=== PATIENT | female | born 1970 | race Caucasian/White ===

== ENCOUNTER 2016-12-27 13:01 | Emergency (ER) | payer BC ==
[2016-12-27 13:06] VITALS: BP 116/79; PULSE 96; TEMP 97.9; BMI 34.9
--- NOTE | 2016-12-27 14:18 | PDOC ---
History of Present Illness - General Chief Complaint: Pain Stated Complaint: RT SIDE PAIN Time Seen by Provider: 12/27/16 13:55 History Source: Patient Exam Limitations: No Limitations - History of Present Illness Initial Comments: 12/27/16 16:31 CHIEF COMPLAINT: Right lateral torso pain. HISTORY OF PRESENT ILLNESS: Patient is a 46-year-old female, history of laparoscopic cholecystectomy. Patient presents with right lateral rib pain. 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 Concerned she may have broken a rib or muscle. Patient denies any respiratory difficulty, pain is only reproducible with movement. There is no erythema edema or bruising. No lacerations. No pain on inspiration. Denies any fever, no cough or cold-like symptoms. 12/27/16 20:08 Timing/Duration: 24 hours Severity: moderate Past History - Past Medical History Allergies/Adverse Reactions: Allergies Allergy/AdvReac Type Severity Reaction Status Date / Time No Known Allergies Allergy Verified 12/27/16 13:06 Home Medications: Ambulatory Orders No Home Medications 0 dose .ROUTE UTDICT 03/04/12 Cyclobenzaprine HCl [Flexeril 10 mg] 10 mg PO BID PRN #10 tablet MDD 2 12/27/16 Naproxen [Naprosyn -] 500 mg PO BID #14 tablet 12/27/16 COPD: No Other medical history: NONE - Surgical History Cholecystectomy: Yes - Suicide/Smoking/Psychosocial Hx Smoking Status: No Smoking History: Never smoked Number of Cigarettes Smoked Daily: 0 Hx Alcohol Use: No Drug/Substance Use Hx: No Review of Systems - Review of Systems Constitutional: No: Symptoms Reported HEENTM: No: Symptoms Reported Respiratory: No: Symptoms reported Cardiac (ROS): Yes: Other (pain to her right lateral ribs). No: Chest Pain ABD/GI: No: Symptoms Reported, Nausea, Vomiting : No: Symptoms Reported Musculoskeletal: Yes: Muscle Pain. No: Back Pain, Joint Pain, Joint Swelling, Muscle Weakness, Joint Stiffness Integumentary: No: Symptoms Reported, Bruising, Erythema Neurological: No: Symptoms reported, Paresthesia, Tingling, Tremors Hematologic/Lymphatic: No: Symptoms Reported All Other Systems: Reviewed and Negative *Physical Exam - Vital Signs Last Vital Signs Temp Pulse Resp BP Pulse Ox 97.9 F 96 H 20 116/79 99 12/27/16 13:03 12/27/16 13:03 12/27/16 13:03 12/27/16 13:03 12/27/16 13:03 - Physical Exam General Appearance: Yes: Appropriately Dressed. No: Apparent Distress HEENT: positive: STEVE, Normal ENT Inspection, Normal Voice, Symmetrical, TMs Normal, Pharynx Normal Neck: positive: Trachea midline. negative: Tender, Tender lateral, Tender midline Respiratory/Chest: positive: Lungs Clear, Normal Breath Sounds. negative: Respiratory Distress, Accessory Muscle Use Cardiovascular: positive: Regular Rhythm, Regular Rate Gastrointestinal/Abdominal: positive: Normal Bowel Sounds, Soft. negative: Tender Lymphatic: negative: Adenopathy Musculoskeletal: positive: Normal Inspection, Other (pains right lateral ribs with Dr. Lu with movement). negative: Decreased Range of Motion, Muscle Spasm, Vertebral Tenderness Extremity: positive: Normal Capillary Refill, Normal Inspection, Normal Range of Motion, Pelvis Stable. negative: Tender Integumentary: positive: Normal Color, Dry. negative: Erythema, Swelling, Ecchymosis, Bruising Neurologic: positive: Alert, Normal Mood/Affect ED Treatment Course - RADIOLOGY Radiology Studies Ordered: Category Date Time Status CHEST PA & LAT [RAD] Stat Radiology 12/27/16 14:14 Ordered RIBS RIGHT SIDE [RAD] Stat Radiology 12/27/16 14:14 Ordered Medical Decision Making - Medical Decision Making 12/27/16 20:10 A/P: Patient here for evaluation of right lateral rib pain, musculoskeletal pain. Patient sent x-ray, negative for acute fracture of ribs, chest x-ray is negative for acute pathology. Given with good result will DC patient home on Motrin. Follow-up with PMD if pain persists. If any chest pain shortness of breath difficulty. He went into concerns return to ER *DC/Admit/Observation/Transfer Diagnosis at time of Disposition: Musculoskeletal pain, Rib pain on right side - Discharge Dispostion Disposition: HOME Condition at time of disposition: Good Admit: No - Prescriptions Prescriptions: Cyclobenzaprine HCl [Flexeril 10 mg] 10 mg PO BID PRN #10 tablet MDD 2 PRN Reason: Pain Level 1-5 Naproxen [Naprosyn -] 500 mg PO BID #14 tablet - Referrals Referrals: Marc Mims MD [Primary Care Provider] - - Patient Instructions Additional Instructions: 1. Please return to the emergency department with any numbness, tingling, weakness, numbness or tingling to groin or legs, or loss of bowel or bladder function. 2. Use pain medication as ordered. 3. Please is to followup in the office of Dr. Mims for evaluation within a week if no improvement. 4. Ice or heat 5. Refrain from lifting anything above 10 pounds, until pain resolved. - Post Discharge Activity Forms/Work/School Notes: Back to Work
[2016-12-27] MEDS ORDERED: KETOROLAC TROMETHAMINE 60 MG/2 ML VIAL IM ONE (15:37)
[2016-12-27] MEDS ORDERED: KETOROLAC TROMETHAMINE 60 MG/2 ML VIAL ONE (15:39)
== END 2016-12-27 16:37 | disposition home or self-care (01) ==
LOC: JERFT 13:01
PROC: 3E0233Z Introduction of Anti-inflammatory into Muscle, Percutaneous Approach (ICD-10-PCS; principal; 2016-12-27)
DX: R07.81 Pleurodynia (principal); M79.1 Myalgia
CPT/HCPCS: 71020-TC; 71101-TC-RT; 84703; 99281-25

== ENCOUNTER 2017-01-16 07:44 | Observation (INO) | payer SELFPAY ==
--- NOTE | 2017-01-16 08:14 | PDOC ---
Attending Attestation - HPI HPI: 01/16/17 08:39 The patient is a 46 year old female, with no significant past medical history, who presents to the emergency department with intermittent right lower quadrant pain for 3 days. She reports the pain increased since last night prompting her ED visit today. She denies taking OTC pain medications today. She reports the pain is sharp, 6/10, and localized to her right lower quadrant. She states she is sexually active without history of STDs. She denies chest pain, shortness of breath, headache and dizziness. She denies fever, chills, nausea, vomit, diarrhea and constipation. She denies dysuria, frequency, urgency and hematuria. Allergies: NKDA Past surgical history: cholecystectomy, tubal ligation, cesareanx2 Social history: Pt denies tobacco use PCP - Dr. Marc Mims - Physicial Exam PE: 01/16/17 08:40 Vitals: Triage vital signs reviewed General Appearance: No acute distress, well nourished, well developed Head: Atraumatic Neck: Supple; No nuchal rigidity Chest Wall: Nontender Cardiac: Regular rate and rhythm, no murmurs, no rubs, no gallops Lungs: Clear to auscultation bilateral, good air movement bilaterally Abdomen: (+) mild RLQ tenderness to palpation without rebound or guarding, Soft , nondistended, normal bowel sounds, Genitourinary: Rectal: Exam deferred Extremities: Full range of motion to all extremities, no cyanosis, clubbing, or edema Skin: Warm and dry, no rashes or lesions, no rash, no petechiae Neuro: AOX3; Cranial Nerves 2-12 grossly intact, Strength intact to all extremities, Sensation intact to all extremities, gait normal Psych: Normal mood, normal affect <Dianne Jonas - Last Filed: 01/16/17 08:39> - Resident Resident Name: Mariel Hernandez - ED Attending Attestation I have performed the following: I have examined & evaluated the patient, The case was reviewed & discussed with the resident, I agree w/resident's findings & plan, Exceptions are as noted - Medical Decision Making 01/16/17 10:441 day history of right-sided abdominal discomfort, status post cholecystectomy, normal pelvic exam We'll check CT labs and reassesspatient Reevaluation: No fever no white count T evidence of acute appendicitis Lactic very slightly elevated at 2.6 I suspect this is secondary to patient being volume down We'll hydrate perform serial abdominal examinations and reassess 01/16/17 14:48 Reevaluation 2 PM patient still with persistent right-sided abdominal pain. We will observe in the hospital. If pain persists she will require surgical consultation <Junior Tony - Last Filed: 01/16/17 14:48>
--- NOTE | 2017-01-16 08:25 | PDOC ---
History of Present Illness - General Chief Complaint: Pain Stated Complaint: RLQ PAIN Time Seen by Provider: 01/16/17 08:00 - History of Present Illness Initial Comments: 01/16/17 08:05 Patient is a 46 y.o. female with no reported PMH who presents with a 2 day h/o R sided abdominal pain that started periumbically and progressively started to radiate to her entire right quadrant. Patient is unable to identify any triggering or relieving factors and denies any vomiting, constipation, diarrhea , fevers or chills however endorses some nausea. Patient has been tolerating PO intake, however notes decreased appetite. Patient is delfina menopausal with LMP in September 2016. NKDA Surgical: C/S x2, Cholecystectomy, Tubal Ligation PMD: Dr. Marc Mims Social: denies cigarettes, denies alcohol, denies recreational drugs Past History - Past Medical History Allergies/Adverse Reactions: Allergies Allergy/AdvReac Type Severity Reaction Status Date / Time No Known Allergies Allergy Verified 01/16/17 07:48 Home Medications: Ambulatory Orders NK [No Known Home Medication] 01/16/17 COPD: No Kidney Stones: Yes - Surgical History Cholecystectomy: Yes - Suicide/Smoking/Psychosocial Hx Smoking Status: No Smoking History: Never smoked Have you smoked in the past 12 months: No Number of Cigarettes Smoked Daily: 0 Information on smoking cessation initiated: No Hx Alcohol Use: No Drug/Substance Use Hx: No Substance Use Type: None Review of Systems - Review of Systems Constitutional: No: Chills, Fever *Physical Exam - Vital Signs Last Vital Signs Temp Pulse Resp BP Pulse Ox 98.1 F 88 18 149/89 100 01/16/17 07:48 01/16/17 07:48 01/16/17 07:48 01/16/17 07:48 01/16/17 07:48 ED Treatment Course - LABORATORY CBC & Chemistry Diagram: 01/16/17 08:36 01/16/17 08:36 Medical Decision Making - Medical Decision Making 01/16/17 08:50 Patient is a 46 y.o. female who presents with a 2 day h/o of R sided abdominal pain that acute onset progressively increasing in severity and radiation from delfina-umbilical to RLQ. Given progressive severity and radiation, high clinical suspicion for appendicitis vs. ovarian pathology including torsion. PLAN: 1. CBC, CMP, IV NS 2. UA, Urine 3. CT Abdomen 01/16/17 09:02 Pelvic exam shows closed cervical os, no appreciable blood or discharge in vaginal vault, no increased pain during exam, suggesting abdominal > ovarian pathology 01/16/17 09:15 Lactic Acid 2.6 --> patient recieving 1 L IV NS will repeat @ 1200; patient @ CT 01/16/17 10:01 Appendix not visualized on CT Scan; Hepatic Steatosis noted, patient reasessed , pain well controlled, c/o nausea. Serial belly exams while await repeat lactate; 01/16/17 12:27 Repeat Lactic Acid 0.7. Patient continues to c/o of belly pain. Given concern for possible development into acute abdomen, patient to be admitted for observation and further evaluation. 01/16/17 14:[address] Beckford (Hospitalist) covering for Dr. Garcia covering for Dr. Mims (patient's PMD). Will continue to monitor while in ED. *DC/Admit/Observation/Transfer Diagnosis at time of Disposition: Abdominal pain - Discharge Dispostion Condition at time of disposition: Fair Admit: Yes - Referrals Referrals: Marc Mims MD [Primary Care Provider] - - Patient Instructions - Post Discharge Activity
[2017-01-16] MEDS ORDERED: SODIUM CHLORIDE 0.9% 1000 ML INFUS.BAG IV ONE ×2 (08:37→09:52)
[2017-01-16] MEDS ORDERED: ACETAMINOPHEN 1000 MG/100 ML VIAL (NON FORMULARY) IVPB ONE (08:37)
[2017-01-16] MEDS ORDERED: morphine CARPU-JECT 2 MG/1 ML DISP.SYRIN IVPUSH ONE (08:39)
[2017-01-16 08:40] LABS: BASOPHIL 0.7 % (0-2.0); EOSINOPHIL 4.3 % (0-4.5); MCH 29.1 pg (25.7-33.7); MCHC 33.9 g/dl (32.0-36.0); MEAN CELL VOLUME 85.8 fl (80-96); MEAN PLT VOLUME 8.1 fl (7.5-11.1); NEUTROPHILS 67.6 % (42.8-82.8); PLATELET COUNT 255 K/MM3 (134-434); RDW 12.8 % (11.6-15.6); WHITE BLOOD COUNT 9.7 K/mm3 (4.0-10.0)
[2017-01-16] MEDS ORDERED: morphine SULFATE 4 MG/ML VIAL ONE (08:43)
[2017-01-16 08:46] LABS: URINE APPEARANCE CLEAR; URINE BILIRUBIN NEGATIVE (NEGATIVE); URINE BLOOD NEGATIVE (NEGATIVE); URINE COLOR LTYELLOW; URINE GLUCOSE (UA) NEGATIVE (NEGATIVE); URINE KETONE NEGATIVE (NEGATIVE); URINE NITRITE NEGATIVE (NEGATIVE); URINE PROTEIN NEGATIVE (NEGATIVE); URINE UROBILINOGEN NEGATIVE mg/dL (0.2-1.0)
[2017-01-16 09:14] LABS: ANION GAP 6 (8-16); BILIRUBIN,TOTAL 0.4 mg/dL (0.2-1.0); CALCIUM 8.6 mg/dL (8.5-10.1); CO2 30 mmol/L (21-32); CREATININE 0.8 mg/dL (0.55-1.02); GLUCOSE,RANDOM 96 mg/dL (74-106); SGOT/AST 19 U/L (15-37); SGPT/ALT 33 U/L (12-78); TOT PROT 7.6 g/dl (6.4-8.2)
[2017-01-16 09:15] LABS: ALK PHOS 87 U/L (45-117)
[2017-01-16] MEDS ORDERED: ONDANSETRON 4 MG/2 ML VIAL IVPUSH ONE (11:01)
[2017-01-16] MEDS ORDERED: ONDANSETRON 4 MG/2 ML VIAL ONE (11:24)
[2017-01-16] MEDS ORDERED: PANTOPRAZOLE SODIUM 40 MG VIAL IVPUSH ONE (14:48)
--- NOTE | 2017-01-16 15:49 | HP ---
CHIEF COMPLAINT: abdominal pain, tenderness x 3 days, intermittent nausea PCP: Dr. Marc Mims HISTORY OF PRESENT ILLNESS: Patient is a 46 year old female with a past medical history of cholecystectomy, tubal ligation and kidney stones 25 yrs ago. She presents to the ED today with RUQ abdominal pain and tenderness that is reproducible on light palpation of right upper quadrant. She states the RUQ pain began on Sunday and began as a dull ache and became more intense and now she describes the pain as a "throbbing , stabbing" pain and rates her pain 6/10. Her las BM was this morning and she reports it as normal. Patient is unable to identify any triggering or relieving factors and denies any vomiting, constipation, diarrhea, fevers or chills however endorses some nausea. Patient has been tolerating PO, however notes decreased appetite since Sunday. Patient is delfina menopausal with LMP in September 2016. ER course was notable for: (1) Lipase 147 (2) Lactic acid 2.6<0.7 (3) Trop 0.02 Recent Travel: none PAST MEDICAL HISTORY: PAST SURGICAL HISTORY: C/S x2, Cholecystectomy, Tubal Ligation Social History: Smoking: denies Alcohol:denies Drugs: denies Family History: Allergies No Known Allergies Allergy (Verified 01/16/17 07:48) HOME MEDICATIONS: Home Medications Medication Instructions Recorded NK [No Known Home Medication] 01/16/17 REVIEW OF SYSTEMS CONSTITUTIONAL: Absent: fever, chills, diaphoresis, generalized weakness, malaise, weight change HEENT: Absent: rhinorrhea, nasal congestion, throat pain, throat swelling, difficulty swallowing, mouth swelling, ear pain, eye pain, visual changes CARDIOVASCULAR: Absent: chest pain, syncope, palpitations, irregular heart rate, lightheadedness , peripheral edema RESPIRATORY: Absent: cough, shortness of breath, dyspnea with exertion, orthopnea, wheezing, stridor, hemoptysis GASTROINTESTINAL: Absent: abdominal distension, vomiting, diarrhea, constipation, melena, hematochezia GENITOURINARY: Absent: dysuria, frequency, urgency, hesitancy, hematuria, flank pain, genital pain MUSCULOSKELETAL: Absent: myalgia, arthralgia, joint swelling, back pain, neck pain SKIN: Absent: rash, itching, pallor HEMATOLOGIC/IMMUNOLOGIC: Absent: easy bleeding, easy bruising, lymphadenopathy, frequent infections ENDOCRINE: Absent: unexplained weight gain, unexplained weight loss, heat intolerance, cold intolerance NEUROLOGIC: Absent: headache, focal weakness or paresthesias, dizziness, unsteady gait, seizure, mental status changes, bladder or bowel incontinence PSYCHIATRIC: Absent: anxiety, depression, suicidal or homicidal ideation, hallucinations. PHYSICAL EXAMINATION Vital Signs - 24 hr 01/16/17 01/16/17 01/16/17 07:48 12:16 14:15 Temperature 98.1 F 98.3 F Pulse Rate 88 Pulse Rate [ 93 H 95 H Right Radial] Respiratory 18 16 16 Rate Blood Pressure 149/89 Blood Pressure 133/68 130/66 [Left Arm] O2 Sat by Pulse 100 100 100 Oximetry (%) GENERAL: Awake, alert, and fully oriented, in no acute distress. HEAD: Normal with no signs of trauma. EYES: Pupils equal, round and reactive to light, extraocular movements intact, sclera anicteric, conjunctiva clear. No lid lag. EARS, NOSE, THROAT: Ears normal, nares patent, oropharynx clear without exudates. Moist mucous membranes. NECK: Normal range of motion, supple without lymphadenopathy, JVD, or masses. LUNGS: Breath sounds equal, clear to auscultation bilaterally. No wheezes, and no crackles. No accessory muscle use. HEART: Regular rate and rhythm, normal S1 and S2 without murmur, rub or gallop. ABDOMEN: Soft, non distended abdomen, + bowel sounds, RUQ pain on light palpation, +flatus MUSCULOSKELETAL: Normal range of motion at all joints. No bony deformities or tenderness. No CVA tenderness. UPPER EXTREMITIES: 2+ pulses, warm, well-perfused. No cyanosis. No clubbing. No peripheral edema. LOWER EXTREMITIES: eczema on bilateral anterior shins NEUROLOGICAL: Normal speech. Normal gait. PSYCHIATRIC: Cooperative. Good eye contact. Appropriate mood and affect. SKIN: Warm, dry, normal turgor, no rashes or lesions noted, normal capillary refill. Laboratory Results - last 24 hr 01/16/17 01/16/17 01/16/17 08:36 08:36 08:36 WBC 9.7 RBC 5.07 Hgb 14.7 Hct 43.5 MCV 85.8 MCH 29.1 MCHC 33.9 RDW 12.8 Plt Count 255 MPV 8.1 Neutrophils % 67.6 Lymphocytes % 19.8 Monocytes % 7.6 Eosinophils % 4.3 Basophils % 0.7 Sodium 139 Potassium 3.9 Chloride 103 Carbon Dioxide 30 Anion Gap 6 L BUN 12 Creatinine 0.8 Creat Clearance w eGFR > 60 Random Glucose 96 Lactic Acid Calcium 8.6 Total Bilirubin 0.4 AST 19 ALT 33 Alkaline Phosphatase 87 Total Protein 7.6 Albumin 4.0 Lipase 147 Urine Color Ltyellow Urine Appearance Clear Urine pH 5.0 Ur Specific [place] 1.017 Urine Protein Negative Urine Glucose (UA) Negative Urine Ketones Negative Urine Blood Negative Urine Nitrite Negative Urine Bilirubin Negative Urine Urobilinogen Negative Urine HCG, Qual Negative 01/16/17 01/16/17 08:36 13:00 WBC RBC Hgb Hct MCV MCH MCHC RDW Plt Count MPV Neutrophils % Lymphocytes % Monocytes % Eosinophils % Basophils % Sodium Potassium Chloride Carbon Dioxide Anion Gap BUN Creatinine Creat Clearance w eGFR Random Glucose Lactic Acid 2.6 H* 0.7 Calcium Total Bilirubin AST ALT Alkaline Phosphatase Total Protein Albumin Lipase Urine Color Urine Appearance Urine pH Ur Specific [place] Urine Protein Urine Glucose (UA) Urine Ketones Urine Blood Urine Nitrite Urine Bilirubin Urine Urobilinogen Urine HCG, Qual ASSESSMENT/PLAN: Patient is a 46 year old female with a past medical history of cholecystectomy, tubal ligation and kidney stones 25 yrs ago. She presents to the ED today with RUQ abdominal pain and tenderness that is reproducible on light palpation of right upper quadrant. She states the RUQ pain began on Sunday and began as a dull ache and became more intense and now she describes the pain as a "throbbing , stabbing" pain and rates her pain 6/10, the pain does not radiate to her back or anywhere else. Her las BM was this morning and she reports it as normal. Patient is unable to identify any triggering or relieving factors and denies any vomiting, constipation, diarrhea, fevers or chills however endorses some nausea. Patient has been tolerating PO, however notes decreased appetite since Sunday. Patient is delfina menopausal with LMP in September 2016. In ED lactic acidosis resolved with hydration, no signs of infection. Imaging: CT abdomen and pelvis with IV contrast: appendix not visualized, however no secondary sings of acute appendicitis in the RLQ. No intestinal obstruction and no bowel wall thickening, hepatic statosis, status post cholecystectom. The uterus and urinary bladder are unremarkable. GI: Abdominal pain, acute CT abdomen as above WBC within normal limtis, afebrile, vitals stable Monitor for now in OBS Clear liquid diet Low dose morphine 0.5mg for pain control Zofran for nausea Protonix 40mg daily GI consult and pt to follow as an outpatient Trop negative F.E.N. Fluids: PO Electrolytes: monitor Nutrition: clears Prophylaxis: DVT: ambulatory, LOS <48 hours, deferred a/c GI: protonix 40mg daily, consider Protonix 40mg PO daily on discharge Disposition. observation, d/c tomorrow likely. full code. Visit type - Emergency Visit Emergency Visit: Yes ED Registration Date: 01/16/17 Care time: The patient presented to the Emergency Department on the above date and was hospitalized for further evaluation of their emergent condition. - New Patient This patient is new to me today: Yes Date on this admission: 01/16/17 - Critical Care Critical Care patient: No
[2017-01-16] MEDS ORDERED: PANTOPRAZOLE SODIUM 40 MG/100 ML BAG IVPB ONE (16:01)
--- NOTE | 2017-01-16 16:39 | CON.GI ---
Consult Consult Specialty:: GI Reason for Consultation:: abd. pain - History of Present Illness History of Present Illness: A 46 yof history of 12 y ago, tubal ligation, presents with acute onset, 3 days ago, RLQ pain, deep, non-radiating, w/o nausea, vomiting, changes in bowels, fever, chills, jaundice. The pain is unrelated to food, fasting, stress. No ill contacts, eating, out, changes in diet. No dysphagia, odynophagia , GERD. No dysurea, hematurea. Was involved in heavy physical activity on Sunday (lifting a Prepmatic tree by herself), reports no injures. - History Source History Provided By: Patient, Family Member, Medical Record - Alcohol/Substance Use Hx Alcohol Use: No - Smoking History Smoking history: Never smoked Have you smoked in the past 12 months: No Aproximately how many cigarettes per day: 0 Home Medications - Allergies Allergies/Adverse Reactions: Allergies Allergy/AdvReac Type Severity Reaction Status Date / Time No Known Allergies Allergy Verified 01/16/17 07:48 - Home Medications Home Medications: Ambulatory Orders NK [No Known Home Medication] 01/16/17 Family Disease History - Family Disease History Family History: Unremarkable Review of Systems Findings/Remarks: as per H&P, HPI Physical Exam-GI Vital Signs: Vital Signs Temperature 98.1 F 01/16/17 16:35 Pulse Rate 89 01/16/17 16:35 Respiratory Rate 16 01/16/17 16:35 Blood Pressure 128/56 01/16/17 16:35 O2 Sat by Pulse Oximetry (%) 100 01/16/17 16:35 Constitutional: Yes: Well Nourished, No Distress, Calm Eyes: Yes: Conjunctiva Clear HENT: Yes: Atraumatic Neck: Yes: Supple Cardiovascular: Yes: Regular Rate and Rhythm Respiratory: Yes: Regular, CTA Bilaterally ...Auscultate: Yes: Normoactive Bowel Sounds Musculoskeletal: Yes: Muscle Pain (RLQ abdominal wall tenderness on palpation elicited while supine with both legs raised up. no obvius abdominal wall defects) Extremities: Yes: WNL Edema: No Neurological: Yes: Alert, Oriented Labs: CBC, BMP 01/16/17 08:36 01/16/17 08:36 Abnormal Lab Results 01/16/17 01/16/17 08:36 08:36 Anion Gap 6 L Lactic Acid 2.6 H* Laboratory Results - last 24 hr 01/16/17 01/16/17 01/16/17 08:36 08:36 08:36 WBC 9.7 RBC 5.07 Hgb 14.7 Hct 43.5 MCV 85.8 MCH 29.1 MCHC 33.9 RDW 12.8 Plt Count 255 MPV 8.1 Neutrophils % 67.6 Lymphocytes % 19.8 Monocytes % 7.6 Eosinophils % 4.3 Basophils % 0.7 Sodium 139 Potassium 3.9 Chloride 103 Carbon Dioxide 30 Anion Gap 6 L BUN 12 Creatinine 0.8 Creat Clearance w eGFR > 60 Random Glucose 96 Lactic Acid Calcium 8.6 Total Bilirubin 0.4 AST 19 ALT 33 Alkaline Phosphatase 87 Troponin I Total Protein 7.6 Albumin 4.0 Lipase 147 Urine Color Ltyellow Urine Appearance Clear Urine pH 5.0 Ur Specific [place] 1.017 Urine Protein Negative Urine Glucose (UA) Negative Urine Ketones Negative Urine Blood Negative Urine Nitrite Negative Urine Bilirubin Negative Urine Urobilinogen Negative Ur Leukocyte Esterase Negative Urine HCG, Qual Negative 01/16/17 01/16/17 01/16/17 08:36 13:00 16:15 WBC RBC Hgb Hct MCV MCH MCHC RDW Plt Count MPV Neutrophils % Lymphocytes % Monocytes % Eosinophils % Basophils % Sodium Potassium Chloride Carbon Dioxide Anion Gap BUN Creatinine Creat Clearance w eGFR Random Glucose Lactic Acid 2.6 H* 0.7 Calcium Total Bilirubin AST ALT Alkaline Phosphatase Troponin I < 0.02 Total Protein Albumin Lipase Urine Color Urine Appearance Urine pH Ur Specific [place] Urine Protein Urine Glucose (UA) Urine Ketones Urine Blood Urine Nitrite Urine Bilirubin Urine Urobilinogen Ur Leukocyte Esterase Urine HCG, Qual Imaging - Results Cat Scan: Report Reviewed (no acute pathology) Problem List - Problems (1) Musculoskeletal pain Code(s): M79.1 - MYALGIA (2) Abdominal pain Code(s): R10.9 - UNSPECIFIED ABDOMINAL PAIN Assessment/Plan Boubt acute GI pathology. Suspect abdominal wall muscular pain caused by heavy lifting. No obvious hernia-related findings. Normal CT/Labs including UA, negative HGC Motrin PRN Avoid strenuous activities for 1-2 weeks OK to D/C from GI perspective Follow up with PCP in few days for reassessment Discussed with the patient and her
[2017-01-16 17:10] LABS: URINE LEUK ESTERASE Negative (NEGATIVE)
[2017-01-16] MEDS ORDERED: morphine SULFATE 4 MG/ML VIAL IVPB PRN (18:10)
[2017-01-16] MEDS ORDERED: ONDANSETRON 4 MG/2 ML VIAL IVPUSH PRN (18:11)
[2017-01-16 18:59] VITALS: BMI 36.3
[2017-01-16] MEDS: ACETAMINOPHEN 325 MG TABLET (FP) PO PRN (19:59)
[2017-01-17 07:49] LABS: BASOPHIL 0.5 % (0-2.0); EOSINOPHIL 5.5 % (0-4.5); MCH 28.9 pg (25.7-33.7); MCHC 33.8 g/dl (32.0-36.0); MEAN CELL VOLUME 85.6 fl (80-96); MEAN PLT VOLUME 8.3 fl (7.5-11.1); NEUTROPHILS 60.3 % (42.8-82.8); PLATELET COUNT 205 K/MM3 (134-434); WHITE BLOOD COUNT 7.1 K/mm3 (4.0-10.0)
[2017-01-17 08:11] LABS: ALBUMIN 3.4 g/dl (3.4-5.0); ANION GAP 9 (8-16); CO2 29 mmol/L (21-32); GLUCOSE,RANDOM 75 mg/dL (74-106)
[2017-01-17 08:14] LABS: ALK PHOS 67 U/L (45-117); BILIRUBIN,TOTAL 0.4 mg/dL (0.2-1.0); CREATININE 0.7 mg/dL (0.55-1.02); SGOT/AST 19 U/L (15-37); SGPT/ALT 31 U/L (12-78); TOT PROT 6.5 g/dl (6.4-8.2)
--- NOTE | 2017-01-17 08:48 | PN ---
Progress Note, Physician History of Present Illness: The pain is unchanged. No events. - Current Medication List Current Medications: Active Medications Acetaminophen (Tylenol -) 650 mg PO Q6H PRN PRN Reason: FEVER OR PAIN Last Admin: 01/16/17 19:59 Dose: 650 mg Morphine Sulfate (Morphine Sulfate) 0.5 mg IVPB Q6H PRN PRN Reason: PAIN Ondansetron HCl (Zofran Injection) 4 mg IVPUSH Q6H PRN PRN Reason: NAUSEA AND/OR VOMITING Pantoprazole Sodium (Protonix Iv) 40 mg IVPUSH DAILY ANTOINETTE - Objective Vital Signs: Vital Signs Temperature 97.9 F 01/17/17 05:58 Pulse Rate 90 01/17/17 05:58 Respiratory Rate 20 01/17/17 05:58 Blood Pressure 135/69 01/17/17 05:58 O2 Sat by Pulse Oximetry (%) 96 01/16/17 21:00 Constitutional: Yes: No Distress, Calm Eyes: Yes: Conjunctiva Clear HENT: Yes: Atraumatic Neck: Yes: Supple Cardiovascular: Yes: Regular Rate and Rhythm Respiratory: Yes: Regular Gastrointestinal: Yes: Normal Bowel Sounds, Soft. No: Melena, Rectal Bleeding, Tenderness Neurological: Yes: Alert, Oriented Labs: CBC, BMP 01/17/17 05:35 01/17/17 05:35 Laboratory Results - last 24 hr 01/16/17 01/16/17 01/16/17 08:36 08:36 08:36 WBC RBC Hgb Hct MCV MCH MCHC RDW Plt Count MPV Neutrophils % Lymphocytes % Monocytes % Eosinophils % Basophils % Sodium 139 Potassium 3.9 Chloride 103 Carbon Dioxide 30 Anion Gap 6 L BUN 12 Creatinine 0.8 Creat Clearance w eGFR > 60 Random Glucose 96 Lactic Acid 2.6 H* Calcium 8.6 Total Bilirubin 0.4 AST 19 ALT 33 Alkaline Phosphatase 87 Troponin I Total Protein 7.6 Albumin 4.0 Lipase 147 Urine Color Ltyellow Urine Appearance Clear Urine pH 5.0 Ur Specific Dillard 1.017 Urine Protein Negative Urine Glucose (UA) Negative Urine Ketones Negative Urine Blood Negative Urine Nitrite Negative Urine Bilirubin Negative Urine Urobilinogen Negative Ur Leukocyte Esterase Negative Urine HCG, Qual Negative 01/16/17 01/16/17 01/17/17 13:00 16:15 05:35 WBC 7.1 RBC 4.75 Hgb 13.7 Hct 40.7 MCV 85.6 MCH 28.9 MCHC 33.8 RDW 13.0 Plt Count 205 MPV 8.3 Neutrophils % 60.3 Lymphocytes % 24.9 D Monocytes % 8.8 Eosinophils % 5.5 H Basophils % 0.5 Sodium Potassium Chloride Carbon Dioxide Anion Gap BUN Creatinine Creat Clearance w eGFR Random Glucose Lactic Acid 0.7 Calcium Total Bilirubin AST ALT Alkaline Phosphatase Troponin I < 0.02 Total Protein Albumin Lipase Urine Color Urine Appearance Urine pH Ur Specific Dillard Urine Protein Urine Glucose (UA) Urine Ketones Urine Blood Urine Nitrite Urine Bilirubin Urine Urobilinogen Ur Leukocyte Esterase Urine HCG, Qual 01/17/17 05:35 WBC RBC Hgb Hct MCV MCH MCHC RDW Plt Count MPV Neutrophils % Lymphocytes % Monocytes % Eosinophils % Basophils % Sodium 143 Potassium 4.1 Chloride 105 Carbon Dioxide 29 Anion Gap 9 BUN 7 D Creatinine 0.7 Creat Clearance w eGFR > 60 Random Glucose 75 D Lactic Acid Calcium 9.0 Total Bilirubin 0.4 AST 19 ALT 31 Alkaline Phosphatase 67 D Troponin I Total Protein 6.5 Albumin 3.4 Lipase Urine Color Urine Appearance Urine pH Ur Specific Dillard Urine Protein Urine Glucose (UA) Urine Ketones Urine Blood Urine Nitrite Urine Bilirubin Urine Urobilinogen Ur Leukocyte Esterase Urine HCG, Qual Problem List - Problems (1) Musculoskeletal pain Code(s): M79.1 - MYALGIA (2) Abdominal pain Code(s): R10.9 - UNSPECIFIED ABDOMINAL PAIN Assessment/Plan Doubt acute GI pathology. Suspect abdominal wall muscular pain caused by heavy lifting. No obvious hernia-related findings. Normal CT/Labs including UA, negative HGC Motrin PRN Avoid strenuous activities for 1-2 weeks OK to D/C from GI perspective Follow up with PCP in few days for reassessment
[2017-01-17] MEDS: ACETAMINOPHEN 325 MG TABLET (FP) PO PRN (09:54)
[2017-01-17] MEDS ORDERED: PANTOPRAZOLE SODIUM 40 MG VIAL IVPUSH SCH (10:00)
[2017-01-17 11:21] VITALS: BP 129/75; PULSE 86; TEMP 98
--- NOTE | 2017-01-17 12:37 | DS ---
Physical Examination Vital Signs: Vital Signs Temperature 98.0 F 01/17/17 09:00 Pulse Rate 86 01/17/17 09:00 Respiratory Rate 18 01/17/17 09:00 Blood Pressure 129/75 01/17/17 09:00 O2 Sat by Pulse Oximetry (%) 96 01/17/17 09:00 Labs: CBC, BMP 01/17/17 05:35 01/17/17 05:35 Discharge Summary Reason For Visit: ACUTE ABDOMINAL PAIN IN RIGHT LOWER QUADRANT Current Active Problems Abdominal pain (Acute) Condition: Improved - Instructions Diet, Activity, Other Instructions: Please return to the ED with new, persistent, or worsening symptoms. Please follow-up with providers as indicated. Referrals: Marc Mims MD [Primary Care Provider] - (Please follow-up with your primary care provider within 2-3 days for further evaluation and reassessment) Dhiraj Mcallister MD [Staff Physician] - 1 Week Disposition: HOME - Home Medications Comprehensive Discharge Medication List: Ambulatory Orders Ibuprofen [Motrin -] 400 mg PO TID PRN #21 tablet 01/17/17
== END 2017-01-17 14:31 | disposition home or self-care (01) ==
LOC: JER 07:44 → JERBED 14:16 → J8W 17:03
PROVIDERS: ADMIT Hospitalist; ATTEND Registered Nurse
PROC: 3E033GC Introduction of Other Therapeutic Substance into Peripheral Vein, Percutaneous Approach (ICD-10-PCS; principal; 2017-01-16)
DX: R10.31 Right lower quadrant pain (principal); M79.1 Myalgia
CPT/HCPCS: 36415; 74177-TC; 80053; 81003; 83605; 83690; 84484; 84703; 85025; 87086; 96374; 99285-25; G0378

== ENCOUNTER 2021-01-10 00:22 | Emergency (ER) | payer OTHER ==
[2021-01-10] MEDS ORDERED: FAMOTIDINE 20 MG/50 ML IVPB 20 MG/50 ML MG IVPB ONE ×2 (02:20→02:23)
[2021-01-10] MEDS ORDERED: ONDANSETRON 4 MG/2 ML VIAL IVPUSH ONE (02:20)
[2021-01-10] MEDS ORDERED: SODIUM CHLORIDE 0.9% 1000 ML INFUS.BAG IV ONE (02:20)
[2021-01-10] MEDS ORDERED: MAG HYDROX/AL HYDROX/SIMETH -MYLANTA- ORAL SUSPENSION PO ONE (02:20)
[2021-01-10] MEDS ORDERED: ONDANSETRON 4 MG/2 ML VIAL ONE (02:23)
[2021-01-10] MEDS ORDERED: MAG HYDROX/AL HYDROX/SIMETH 30 ML UNIT-DOSE CUP ONE (02:23)
[2021-01-10 02:34] LABS: BASO % 0.8 % (0-2.0); EOS % 7.9 % (0-4.5); HEMATOCRIT 46.5 % (32.4-45.2); LYMPH % 12.4 % (8-40); MCH 28.9 pg (25.7-33.7); MCHC 34.4 g/dl (32.0-36.0); MEAN PLT VOLUME 8.1 fl (7.5-11.1); MONO % 6.7 % (3.8-10.2); NEUT % 72.2 % (42.8-82.8); PLATELET COUNT 253 10^3/uL (134-434); RBC 5.53 M/mm3 (3.60-5.2); WHITE BLOOD COUNT 14.4 K/mm3 (4.0-10.0)
[2021-01-10 02:56] LABS: INR 1.14 (0.83-1.09); PROTHROMBIN TIME (PATIENT) 13.3 SEC (9.7-13.0)
[2021-01-10 02:59] LABS: ACTIVATED PTT 37.5 SECONDS (25.2-36.5); CHLORIDE 101 mmol/L (98-107); SODIUM 138 mmol/L (136-145)
[2021-01-10 03:01] LABS: CALCIUM 9.2 mg/dL (8.5-10.1)
[2021-01-10 03:02] LABS: ALBUMIN 3.8 g/dl (3.4-5.0); ANION GAP 7 MMOL/L (8-16); BLOOD UREA NITROGEN 15.3 mg/dL (7-18); CO2 30 mmol/L (21-32); GLUCOSE,RANDOM 106 mg/dL (74-106); LIPASE 118 U/L (73-393)
[2021-01-10 03:04] LABS: SGPT/ALT 30 U/L (13-61)
[2021-01-10 03:05] LABS: SGOT/AST 23 U/L (15-37)
[2021-01-10 03:06] LABS: BILIRUBIN,TOTAL 0.5 mg/dL (0.2-1); TOT PROT 7.8 g/dl (6.4-8.2)
[2021-01-10 03:07] LABS: ALK PHOS 89 U/L (45-117)
[2021-01-10 03:33] VITALS: BP 132/90; PULSE 122; TEMP 98.2; BMI 35.3
[2021-01-10] MEDS ORDERED: ACETAMINOPHEN 1000 MG/100 ML VIAL IVPB ONE (03:34)
[2021-01-10] MEDS ORDERED: ACETAMINOPHEN INJECTION 100 ML IVPB ONE (03:34)
[2021-01-10 03:56] LABS: PH,URINE 6.5 (5.0-8.0); URINE APPEARANCE CLEAR; URINE BILIRUBIN NEGATIVE (NEGATIVE); URINE COLOR YELLOW; URINE GLUCOSE (UA) NEGATIVE (NEGATIVE); URINE KETONE NEGATIVE (NEGATIVE); URINE LEUK ESTERASE NEGATIVE (NEGATIVE); URINE NITRITE NEGATIVE (NEGATIVE); URINE PROTEIN NEGATIVE (NEGATIVE); URINE UROBILINOGEN 0.2 mg/dL (0.2-1.0)
[2021-01-10] MEDS ORDERED: SUCRALFATE 1 GM TABLET (FP) PO ONE (04:07)
[2021-01-10] MEDS ORDERED: SUCRALFATE 1 GM TABLET (FP) ONE (04:15)
== END 2021-01-10 05:39 | disposition home or self-care (01) ==
LOC: JER 00:22
PROC: 3E0333Z Introduction of Anti-inflammatory into Peripheral Vein, Percutaneous Approach (ICD-10-PCS; principal; 2021-01-10)
PROC: 3E033GC Introduction of Other Therapeutic Substance into Peripheral Vein, Percutaneous Approach (ICD-10-PCS; 2021-01-10)
PROC: 3E033GC Introduction of Other Therapeutic Substance into Peripheral Vein, Percutaneous Approach (ICD-10-PCS; 2021-01-10)
DX: R10.9 Unspecified abdominal pain (principal)
CPT/HCPCS: 36415; 71046-TC-FY; 80053; 81003; 83690; 84484; 84703; 85025; 85610; 85730; 86850; 86900; 86901; 87086; 93005; 93010; 99285-25; C9803; J0131; U0003; U0005

== ENCOUNTER 2021-06-20 20:25 | Emergency (ER) | payer OTHER ==
[2021-06-20 20:32] VITALS: BP 142/80; TEMP 97.9; BMI 36.0
[2021-06-20] MEDS ORDERED: SODIUM CHLORIDE 0.9% 500 ML INFUS.BAG IV ONE (21:33)
[2021-06-20] MEDS ORDERED: diphenhydrAMINE HCL 25 MG CAPSULE (FP) PO ONE ×2 (21:55→22:16)
[2021-06-20] MEDS ORDERED: ACETAMINOPHEN 1000 MG/100 ML BAG IVPB ONE (21:58)
[2021-06-20 22:06] LABS: BASO % 0.4 % (0-2.0); EOS % 4.4 % (0-4.5); HEMATOCRIT 43.4 % (32.4-45.2); HEMOGLOBIN 14.8 GM/dL (10.7-15.3); LYMPH % 19.4 % (8-40); MCH 29.1 pg (25.7-33.7); MCHC 34.1 g/dl (32.0-36.0); MEAN CELL VOLUME 85.2 fl (80-96); MEAN PLT VOLUME 7.9 fl (7.5-11.1); MONO % 9.4 % (3.8-10.2); NEUT % 66.4 % (42.8-82.8); PLATELET COUNT 278 10^3/uL (134-434); RDW 12.7 % (11.6-15.6); WHITE BLOOD COUNT 10.9 K/mm3 (4.0-10.0)
[2021-06-20] MEDS ORDERED: ACETAMINOPHEN INJECTION 100 ML IVPB ONE (22:16)
[2021-06-20 22:35] LABS: ALBUMIN 4.2 g/dl (3.4-5.0); CALCIUM 9.8 mg/dL (8.5-10.1); MAGNESIUM 2.3 mg/dL (1.8-2.4)
[2021-06-20 22:36] LABS: BLOOD UREA NITROGEN 14.2 mg/dL (7-18)
[2021-06-20 22:38] LABS: CREATININE 0.8 mg/dL (0.55-1.3)
[2021-06-20 22:40] LABS: BILIRUBIN,TOTAL 0.4 mg/dL (0.2-1); TOT PROT 7.6 g/dl (6.4-8.2)
[2021-06-20 23:58] VITALS: PULSE 97
== END 2021-06-21 01:07 | disposition home or self-care (01) ==
LOC: JER 20:25
PROC: 3E0333Z Introduction of Anti-inflammatory into Peripheral Vein, Percutaneous Approach (ICD-10-PCS; principal; 2021-06-20)
DX: R05.1 Acute cough (principal)
CPT/HCPCS: 0241U-QW; 36415; 71046-TC-FY; 80053; 83735; 84484; 85025; 87807; 93005; 93010; 99285-25; C9803-CS; U0003; U0005